=== PATIENT | female | born 1955 | race Caucasian/White ===

== ENCOUNTER 2018-02-04 19:09 | Emergency (ER) | payer SELFPAY ==
[~2018-02-04] VITALS: Ht 170.2 cm; Wt 83.9 kg
[2018-02-04 19:15] VITALS: Ht 170.2 cm; Wt 83.9 kg
[2018-02-04 21:57] LABS: BASOPHIL % 0.7 % (0-2); PLATELET COUNT 328 x10^3mcL (130-400)
[2018-02-04 22:05] LABS: CALCIUM 9.2 mg/dL (8.5-10.1); CARBON DIOXIDE 26.3 mmol/L (21-32); CREATININE SERUM 1.1 mg/dL (0.6-1.0); POTASSIUM SERUM 4.1 mmol/L (3.5-5.1)
[2018-02-05 01:46] VITALS: BP 129/76
== END 2018-02-05 01:46 | disposition home or self-care (01) ==
LOC: ED 19:09
PROVIDERS: Emergency Medicine
DX: S16.1XXA Strain of muscle, fascia and tendon at neck level, initial encounter (principal); S39.012A Strain of muscle, fascia and tendon of lower back, initial encounter; S20.219A Contusion of unspecified front wall of thorax, initial encounter; S70.01XA Contusion of right hip, initial encounter; V48.6XXA Car passenger injured in noncollision transport accident in traffic accident, initial encounter; Y93.89 Activity, other specified; Y92.89 Other specified places as the place of occurrence of the external cause; Y99.8 Other external cause status
CPT/HCPCS: J2270; J7030; Q0092; Q9967